=== PATIENT | male | born 1955 | race Caucasian/White ===

== ENCOUNTER → 2016-06-27 | Outpatient (CLI) | payer BC ==
[~2016-06-27] MED LIST: ASPEC81 PO; ATOR-24 PO; CHOL100010 PO; CLOP1TAB15 PO; DVN80125 PO; GLC500 PO; LOSA1TAB PO; METO50TA16 PO; OMEG10007 PO; PRAV20TA PO; SYN175 PO; UBIQ1CAP PO; VGR50 PO
--- NOTE | 2016-06-27 14:06 | DIAGNOSTIC IMAGING REPORT ---
CT OF THE CHEST WITHOUT IV CONTRAST CLINICAL HISTORY: Thoracic aortic aneurysm. Dilated aortic root. COMPARISON STUDY: Chest CT March 19, 2011. CT DOSE: 641.88 mGycm TECHNIQUE: Axial images of the chest were obtained without IV contrast. Images were reviewed in the axial, sagittal, and coronal planes. IV contrast was not administered for this examination. FINDINGS: Moderate dilatation of the ascending aorta is unchanged since exam of March 19, 2011. The aorta measures 5 cm at the level the main pulmonary artery. There is moderate aortic valvular calcification. The heart is moderately enlarged. There is no pericardial effusion. No enlarged thoracic lymph nodes are present. The sensitivity for detection of dissection is diminished on this unenhanced exam. There is no evidence for intramural hematoma. A 5 mm subpleural nodule within the right upper lobe shown on image 15 of 61 is unchanged since prior exam. This is benign. Subpleural groundglass opacity within the right lower lobe suggest atelectasis or scarring. The bony thorax and upper abdomen are unremarkable. IMPRESSION: 1. No change in aneurysmal dilatation of the ascending aorta, measuring 5 cm, since exam of March 19, 2011. Moderate aortic valvular calcification. 2. Stable 5 m right upper lobe nodule which is benign. Electronically signed by: Nikos Bee M.D. 06/27/2016 2:04 PM Dictated Date/Time: 06/27/2016 1:54 PM
== END | disposition home or self-care (01) ==
LOC: C.CTS 13:35
PROVIDERS: ATTEND Surgery Vascular Surgery
DX: I71.2 Thoracic aortic aneurysm, without rupture (principal); R91.1 Solitary pulmonary nodule

== ENCOUNTER → 2016-08-17 | Day surgery (SDC) | payer BC ==
[~2016-08-17] VITALS: Ht 167.6 cm; Wt 110.0 kg
[~2016-08-17] MED LIST changes: +FENTANYL CITRATE INJ 50 MCG/1 ML 2 ML VIAL ONE; +HEPARIN SOD (PORCINE) 1000 UNIT/ML 10 ML VIAL ONE; +MIDAZOLAM HCL 1 MG/ML 2ML VIAL ONE; +NITROGLYCERIN/D5W 100MCG/ML 20ML SYR ONE; +NiCARDipine HCL INJ 2.5 MG/ML 10 ML AMP ONE
[2016-08-17 07:11] VITALS: BP 130/90; PULSE 66; TEMP 36.6; O2SAT 98; Ht 167.6 cm; Wt 110.0 kg
[2016-08-17 09:17] LABS: ISTAT ARTERIAL BLOOD GAS HCO3 27 meq/L (19-24); ISTAT ARTERIAL BLOOD GAS PCO2 54 mmHg (35-46); ISTAT ARTERIAL BLOOD GAS PO2 39 mmHg (80-95); ISTAT ARTERIAL BLOOD GAS pH 7.31 (7.35-7.45); ISTAT CARBON DIOXIDE 29 mEq/l (24-31)
[2016-08-17 09:17] LABS: ISTAT ARTERIAL BLOOD GAS HCO3 26 meq/L (19-24); ISTAT ARTERIAL BLOOD GAS PCO2 49 mmHg (35-46); ISTAT ARTERIAL BLOOD GAS PO2 77 mmHg (80-95); ISTAT ARTERIAL BLOOD GAS pH 7.33 (7.35-7.45); ISTAT CARBON DIOXIDE 27 mEq/l (24-31)
--- NOTE | 2016-08-17 09:43 | Discharge Instructions ---
Discharge Instructions Procedure Procedure Date: Aug 17, 2016. Reason for Visit: *Dr Triplett To Do Cad,Chest Pain. Discharge Discharge Date: Aug 17, 2016. Discharge Diagnosis: Aortic stenosis, Aortic Aneurysm Last Recorded Wt (Kilograms): 110 Anesthesia Post Anesthesia Instructions: If you have had General Anesthesia or IV Sedation: * Do not drive today. * Resume driving when surgeon permits. * Do not make important decisions or sign legal documents today. * Call surgeon for: 1. Temperature elevations greater than 101 degrees F. 2. Uncontrollable pain. 3. Excessive bleeding. 4. Persistent nausea and vomiting. 5. Medication intolerance (nausea, vomiting or rash). * For nausea and vomiting use only clear liquids such as: tea, soda, bouillon until nausea subsides, then gradually increase diet as tolerated. * If you have any concerns or questions, call your surgeon's office. If physician is unavailable and it is an emergency, call 911 or go to the nearest emergency room. Instructions Activity Recommendations: limitations as noted below Allergies: Coded Allergies: No Known Allergies (Unverified , 05/29/13) Follow Up Additional Instructions: ACTIVITY RECOMMENDATIONS: It is common to feel weak and fatigue for a few days. * Do not drive or operate any motorized equipment for the next day. * Limit stair usage (2 or 3 trips a day only) for the next day. * Do not lift anything heavier than 10 pounds for the next three days. * Do not engage in vigorous exercise or any sports for the next five days. * You may shower the day after your procedure, but do not immerse the area for three days. Cleanse the site gently with soap and water. SPECIAL CARE INSTRUCTIONS: * You may replace the pressure dressing or band-aid the morning after the procedure. * After your procedure, it is normal to have a small bruise or small lump at the site. Examine your site daily for any change in the bruise or lump, redness, swelling, drainage or numbness. Notify your doctor if any change. BLEEDING: * If there is a small amount of bleeding at the site, lie down and apply firm pressure with a clean cloth for ten minutes. When the bleeding stops, lie quietly keeping the procedure limb straight for six hours. Notify your doctor as soon as possible. * If the bleeding does not stop after ten minutes or if there is a large amount of bleeding or spurting, call 911 immediately. Continue to lie down and hold firm pressure until help arrives. SKIN IRRITATION: * You may experience some redness and/or swelling in the area where radiation was administered. If any skin irritation occurs, please contact your family physician. FOLLOW UP VISIT: Keep any scheduled doctor appointments. Follow-up with: As scheduled with Dr. Christian, Cardiac surgery [facility] Recommendations: Call your doctor if: * Temperature above 101 degrees * Pain not relieved by pain medicine ordered * There is increased drainage or redness from any incision * You have any unanswered questions or concerns. Your Doctors Instructions noted above were prepared by provider Rod Triplett. Patient Signature Section: Patient Instructions Signature Page Arnulfo Rothman Patient (or Guardian) Signature/Date: I have read and understand the instructions given to me by my caregivers. Caregiver/RN/Doctor Signature/Date: The above-named patient and/or guardian has received patient instructions on this date. + Original Patient Signature Page (only) stays with chart. Please make copy for patient.
--- NOTE | 2016-08-17 09:43 | Procedure Note ---
Pre-Mod Sedation Assessment General Date of Moderate Sedation: Aug 17, 2016. Vital Signs: Vital Signs Past 12 Hours Date Time Temp Pulse Resp B/P Pulse Ox O2 Delivery O2 Flow Rate FiO2 08/17/16 07:11 36.6 66 16 130/90 98 Room Air Review Cardiovascular: regular rate, rhythm, no edema Abdomen: normal bowel sounds, non tender, soft Lungs: chest non-tender, lungs clear, normal breath sounds Airway Class: II Pre-Sedation Airway Assessment Oral Cavity: WNL Able to Visualize Vocal Cords: Yes Short Thick Neck: Yes Hx of Sleep Apnea: Yes Smoking Status: Never Smoker Mallampati Classification: Class II ASA Classification: Class II Procedure Planning Contraindications-for Mod Sed: None Yes Notes The planned sedation has been discussed with the patient and consent obtained. I have identified the patient, determined the appropriateness of sedation and have assessed the patient immediately prior to the procedure. All medicine(s) and interventions are by my order.
--- NOTE | 2016-08-17 09:43 | Procedure Note ---
Post-Mod Sedation Assessment General Date of Moderate Sedation Aug 17, 2016. Vital Signs: Vital Signs Past 12 Hours Date Time Temp Pulse Resp B/P Pulse Ox O2 Delivery O2 Flow Rate FiO2 08/17/16 07:11 36.6 66 16 130/90 98 Room Air Review - Discharge Criteria Vital Signs Stable: Yes Alert/Oriented/Conversant: Yes Returned to Baseline Mental St: Yes Nausea Absent/Minimal: Yes Pain/Discomfort/Absent/Minimal: Yes Normal/Baseline Respirations: Yes Active Bleeding?: No Pt Received D/C Instructions: Yes Prescriptions Given: None Specific Proced. D/C Criteria Distal Pulses Present (Cardiac: Yes Groin site assessed-Card Cath: N/A Voided Prior To Discharge: N/A Discharged Patients Adult Escort/Transportation: Yes
--- NOTE | 2016-08-17 10:00 | Cardiac Catheterization ---
Procedure Note Procedure Date Aug 17, 2016. Pre-Procedure Diagnosis Valvular Disease AUC Score 7 Post-Procedure Diagnosis Mild CAD, Normal Intracardiac Pressures Procedure(s) Performed Coronary Angiography, Left Heart Cath, Right Heart Cath, Ultrasound Guided Vascular Access Parking Manager Dr. Triplett Computer Bookkeeper(s) Mirna Estimated Blood Loss 10 Medication(s) Fentanyl, Heparin, Nitroglycerin, Versed, Lidocaine 1% Summary of Findings Indication: Severe Aortic stenosis/Bicuspid aortic valve/Ascending aortic aneurysm Access: 6Fr Slender Right Radial Artery, 6Fr Right Basilic vein Catheters: [place], JR4, JL4, 4.5, 5, Toy Findings: LM - Luminal irregularities LAD - Angiographically normal Circumflex - Small caliber vessel, distal luminal irregularities Ramus - Angiographically normal RCA - Dominant, mild proximal luminal irregularities, patent mid RCA stent with minimal in-stent restenosis, distal luminal irregularities. LVEDP - 20 mmHg Mean AV gradient on pullback 23 mmHg RA - 5 RV - 37/10 PA - 35/15, mean 26 PCW - 15 Ao Sat 94% Pa Sat 67% Harsh CO/CI 4.8/2.2 Thermal CO/CI 6.5/3 Arterial Closure: TR Band Summary: 1. Minimal coronary artery disease with patent mid RCA stent 2. Preserved cardiac output 3. Normal intracardiac filling pressures Recommendations: Follow-up with Dr. Christian, [facility] Cardiac surgery for planned AVR, aortic aneurysm repair. Continue on current cardiac medications and discharge to home later today. Hemodynamics Rest Ao: 123/66/90 Final Ao: 133/78/101 LV: 139/20 Recommendations valve replacement Specimens None Radiation Exposure (mGy) 2690 Contrast (mls) 90 Fluids (cc crystalloids) 165 Drains none Anesthesia moderate Procedural Complication(s) None Disposition Transmitter Engineer Holding/Recovery [facility] Data Cardiac Status Clinical evaluation leading to the procedure CAD Presntation: Sx unlikely to be ischemic Anginal Classification: No symptoms Heart Failure: No, NYHA Class: CCS I Cardiogenic Shock w/in 24Hrs: No Cardiac Arrest w/in 24Hrs: No Imaging studies past 6 months: Yes Stress studies past 6 months: No Standard Exercise Stress Test: No Stress Echocardiogram: No Stress Testing w/SPECT MPI: No Cardiac CTA: No Coronary Anatomy Dominant: Right Left Main (% Stenosis): Normal LAD (% Stenosis): Normal Circumflex (% Stenosis): Normal RCA (% Stenosis): Mid (Patent stent) Ramus (% Stenosis): Normal Diagnostic Physician's Name: Theodore Triplett MD Status: Elective Closure Device Percutaneous Entry Location: Radial Closure Device: Radial Band Recommendations: valve replacement Intraprocedure Events Significant Dissection: No Perforation: No
[2016-08-17 12:00] VITALS: BP 155/70; PULSE 63; O2SAT 95
== END | disposition home or self-care (01) ==
LOC: C.CATH 06:52
PROVIDERS: ATTEND Internal Medicine Interventional Cardiology
DX: I25.10 Atherosclerotic heart disease of native coronary artery without angina pectoris (principal); I35.0 Nonrheumatic aortic (valve) stenosis; I71.2 Thoracic aortic aneurysm, without rupture; Q23.1 Congenital insufficiency of aortic valve; Z95.5 Presence of coronary angioplasty implant and graft; E78.5 Hyperlipidemia, unspecified; I25.2 Old myocardial infarction; E11.9 Type 2 diabetes mellitus without complications

== ENCOUNTER → 2017-09-24 | Outpatient (CLI) | payer BC, OTHER ==
[~2017-09-24] MED LIST changes: -CLOP1TAB15 PO; -FENTANYL CITRATE INJ 50 MCG/1 ML 2 ML VIAL ONE; -GLC500 PO; -HEPARIN SOD (PORCINE) 1000 UNIT/ML 10 ML VIAL ONE; -METO50TA16 PO; -MIDAZOLAM HCL 1 MG/ML 2ML VIAL ONE; -NITROGLYCERIN/D5W 100MCG/ML 20ML SYR ONE; -NiCARDipine HCL INJ 2.5 MG/ML 10 ML AMP ONE; -OMEG10007 PO; -PRAV20TA PO; -SYN175 PO
--- NOTE | 2017-09-24 13:53 | DIAGNOSTIC IMAGING REPORT ---
LEFT WRIST RADIOGRAPH INCLUDING CARPAL TUNNEL VIEW CLINICAL HISTORY: Bilateral wrist pain. COMPARISON: None FINDINGS: Alignment of the left wrist is anatomic anatomic. No fracture or suspicious lesion is present. No erosions are identified. There is mild osteophytosis of the left first carpometacarpal joint. IMPRESSION: 1. No acute fracture. 2. 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 Electronically signed by: Nikos Bee M.D. 09/24/2017 1:52 PM Dictated Date/Time: 09/24/2017 1:50 PM
--- NOTE | 2017-09-24 13:59 | DIAGNOSTIC IMAGING REPORT ---
RIGHT WRIST 4 VIEWS HISTORY: Bilateral wrist pain. COMPARISON: None. FINDINGS: There is no fracture or dislocation. Soft tissues are unremarkable. Mild osteoarthritis at the radiocarpal and STT joints demonstrated by cartilage space narrowing. IMPRESSION: No fractures. Electronically signed by: Greg Baird M.D. 09/24/2017 1:57 PM Dictated Date/Time: 09/24/2017 1:55 PM
== END | disposition home or self-care (01) ==
LOC: C.RDSM 13:53
PROVIDERS: ATTEND Family Medicine
DX: M25.531 Pain in right wrist (principal)